=== PATIENT | female | born 2000 | race Caucasian/White ===

== ENCOUNTER 2023-10-10 01:14 | Emergency (ER) | payer BC, SELFPAY ==
--- NOTE | ~2023-10-10 | CT_ITS ---
EXAMINATION: CT HEAD WITHOUT CONTRAST CT CERVICAL SPINE WITHOUT CONTRAST CT FACIAL BONES WITHOUT CONTRAST CLINICAL INFORMATION: Fall. Pain. COMPARISON: None available. TECHNIQUE: Contiguous axial imaging was performed through the head, cervical spine and facial bones without intravenous administration of contrast. Sagittal and coronal reformatted images also obtained. This CT examination was performed using dose optimization techniques as appropriate, variously including the following: *Automated exposure control *Adjustment of mA and/or kV according to patient size (this includes techniques or standardized protocols for targeted exams where dose is matched to indication/reason for exam; i.e. extremities or head) *Use of iterative reconstruction technique DLP: 1207 mGy-cm FINDINGS: Head: Motion slightly limits evaluation. The lateral, third and fourth ventricles are normally outlined. The cortical sulci and basal cisterns are normally outlined as well. There is no acute territorial defect, hemorrhage or midline shift. The extra-axial spaces are unremarkable. Calvarium/scalp: There is right frontotemporal/supraorbital soft tissue swelling. Calvarium is intact. Facial bones: No fracture is seen. There is right periorbital/supraorbital soft tissue swelling. The maxillofacial sinuses and mastoids are clear. Cervical spine: There is straightening of the expected cervical spine curvature. The alignment is otherwise normal. The disc spaces are maintained. The spinal canal and neuroforamen are patent. The soft tissues are unremarkable. The visualized upper lung wei are clear. CT/CT cervical spine wo IV con IMPRESSION: 1. No acute intracranial abnormality. 2. Right periorbital/supraorbital soft tissue swelling. No acute facial fracture. 3. No acute cervical spine abnormality.
--- NOTE | ~2023-10-10 | CT_ITS ---
EXAMINATION: CT HEAD WITHOUT CONTRAST CT CERVICAL SPINE WITHOUT CONTRAST CT FACIAL BONES WITHOUT CONTRAST CLINICAL INFORMATION: Fall. Pain. COMPARISON: None available. TECHNIQUE: Contiguous axial imaging was performed through the head, cervical spine and facial bones without intravenous administration of contrast. Sagittal and coronal reformatted images also obtained. This CT examination was performed using dose optimization techniques as appropriate, variously including the following: *Automated exposure control *Adjustment of mA and/or kV according to patient size (this includes techniques or standardized protocols for targeted exams where dose is matched to indication/reason for exam; i.e. extremities or head) *Use of iterative reconstruction technique DLP: 1207 mGy-cm FINDINGS: Head: Motion slightly limits evaluation. The lateral, third and fourth ventricles are normally outlined. The cortical sulci and basal cisterns are normally outlined as well. There is no acute territorial defect, hemorrhage or midline shift. The extra-axial spaces are unremarkable. Calvarium/scalp: There is right frontotemporal/supraorbital soft tissue swelling. Calvarium is intact. Facial bones: No fracture is seen. There is right periorbital/supraorbital soft tissue swelling. The maxillofacial sinuses and mastoids are clear. Cervical spine: There is straightening of the expected cervical spine curvature. The alignment is otherwise normal. The disc spaces are maintained. The spinal canal and neuroforamen are patent. The soft tissues are unremarkable. The visualized upper lung wei are clear. CT/CT head/brain wo IV con IMPRESSION: 1. No acute intracranial abnormality. 2. Right periorbital/supraorbital soft tissue swelling. No acute facial fracture. 3. No acute cervical spine abnormality.
--- NOTE | ~2023-10-10 | CT_ITS ---
EXAMINATION: CT HEAD WITHOUT CONTRAST CT CERVICAL SPINE WITHOUT CONTRAST CT FACIAL BONES WITHOUT CONTRAST CLINICAL INFORMATION: Fall. Pain. COMPARISON: None available. TECHNIQUE: Contiguous axial imaging was performed through the head, cervical spine and facial bones without intravenous administration of contrast. Sagittal and coronal reformatted images also obtained. This CT examination was performed using dose optimization techniques as appropriate, variously including the following: *Automated exposure control *Adjustment of mA and/or kV according to patient size (this includes techniques or standardized protocols for targeted exams where dose is matched to indication/reason for exam; i.e. extremities or head) *Use of iterative reconstruction technique DLP: 1207 mGy-cm FINDINGS: Head: Motion slightly limits evaluation. The lateral, third and fourth ventricles are normally outlined. The cortical sulci and basal cisterns are normally outlined as well. There is no acute territorial defect, hemorrhage or midline shift. The extra-axial spaces are unremarkable. Calvarium/scalp: There is right frontotemporal/supraorbital soft tissue swelling. Calvarium is intact. Facial bones: No fracture is seen. There is right periorbital/supraorbital soft tissue swelling. The maxillofacial sinuses and mastoids are clear. Cervical spine: There is straightening of the expected cervical spine curvature. The alignment is otherwise normal. The disc spaces are maintained. The spinal canal and neuroforamen are patent. The soft tissues are unremarkable. The visualized upper lung wei are clear. CT/CT facial bones wo IV con IMPRESSION: 1. No acute intracranial abnormality. 2. Right periorbital/supraorbital soft tissue swelling. No acute facial fracture. 3. No acute cervical spine abnormality.
[2023-10-10 01:23] VITALS: BP 143/67; PULSE 105; O2SAT 95
[2023-10-10 01:35] VITALS: BP 136/85; PULSE 76; RESP 20; TEMP 36.6; O2SAT 100
[2023-10-10 01:51] VITALS: BMI 25.6
--- NOTE | 2023-10-10 01:55 | PC.NURSE ---
pt to ct scan now.
--- NOTE | 2023-10-10 02:29 | PC.NURSE ---
pt return from ct scan. abrasion/hematoma of forehead cleaned with sterile water/iodine pt tolerated well. bleeding controlled. bacitracin applied topical. dad at bedside. pt calm/cooperative speaking full clear sentences. [id number]. awaiting ct scan results. call [facility] within reach.
--- NOTE | 2023-10-10 03:22 | ED.FALL ---
HPI - Fall General Chief Complaint: Fall Stated Complaint: FALL, ETOH Time Seen by Provider: 10/10/23 03:18 Source: patient Mode of arrival: EMS Limitations: no limitations History of Present Illness HPI Narrative: Patient comes to the emergency room after sustaining a mechanical fall. Patient states that she was drinking alcohol and tripped and fell. Patient hit her head, did not lose consciousness. Patient is not on blood thinners. Patient complaining of an abrasion and a bump to the forehead on the right side. Denies neck pain, Related Data Allergies Allergy/AdvReac Type Severity Reaction Status Date / Time No Known Allergies Allergy Verified 10/10/23 01:50 Review of Systems Review of Systems: Constitutional : No Weight loss, No Fever, No Chills, No Night Sweats, No Fatigue, No Malaise ENT/Mouth : No Hearing loss, No Ear Pain, No Nasal Congestion, No Sinus Pain, No Hoarseness, No sore throat, No Rhinorrhea, No Swallowing Difficulty Eyes: No Eye Pain, No Swelling, No Redness, No Foreign Body, No Discharge, No Vision Changes Cardiovascular : No Chest Pain, No SOB, No Dyspnea on Exertion, No Orthopnea, No Edema, No Palpitations Respiratory : No Cough, No Sputum, No Wheezing, No Smoke Exposure, No Dyspnea Gastrointestinal : No Nausea, No Vomiting, No Diarrhea, No Constipation, No abdominal Pain, No Hematochezia, No Melena Genitourinary : no irregular bleeding, No Dysuria, No Urinary Frequency, No Hematuria, No Urinary Incontinence, No Urgency, No Flank Pain, No Urinary Flow Changes, No Hesitancy Musculoskeletal : No joint pain, No Myalgias, No Joint Swelling Skin : Ecchymosis and abrasion to the right forehead Neuro : No Weakness, No Numbness, No Paresthesias, No Loss of Consciousness, No Dizziness, No Headache Psych : No Anxiety/Panic, No Depression, No SI/HI/AH/VH, No Social Issues, Heme/Lymph: No Bruising, No Bleeding,No Lymphadenopathy Endocrine : No Polyuria, No Polydipsia, No Temperature Intolerance [facility] Social History Social History Advance Directives: No Advance Directives Information Provided: Yes Physical Exam Vital Signs: Vital Signs: Last Vital Signs Temp 97.8 F 10/10/23 01:35 Pulse 76 10/10/23 01:35 Resp 20 10/10/23 01:35 BP 136/85 10/10/23 01:35 Pulse Ox 100 10/10/23 01:35 O2 Del Method Room Air 10/10/23 01:35 BMI result Body Mass Index 25.6 Const: Other: Appearance: Alert. Oriented X3. No acute distress. Eyes: Pupils equal, round and reactive to light. ENT: Pharynx normal. Neck: Normal inspection. Neck supple. No lymph nodes noted. No crepitus CVS: Normal heart rate and rhythm. Pulses normal. Normal S1 and S2 Respiratory: No respiratory distress. Breath sounds normal. No Wheezing. No rales Abdomen: Soft and nontender. No rigidity. No distention. Skin: Patient has ecchymosis and superficial abrasion to the right side of the forehead. Extremities: No lower extremity edema. No Lacerations. No Rash Neuro: Oriented X 3. No motor deficit. No sensory deficit. Moving all extremities. No slurred speech. CN 2 through 12 grossly intact Psych: calm, cooperative, normal affect Medical Decision Making Medical Decision Making MDM Narrative: My interpretation of head CT and cervical spine CT, no intracranial bleed, normal C-spine alignment. -patient has abrasions and a very small laceration to the forehead which does not require sutures. Differential Diagnosis Differential Diagnoses: The differential diagnosis associated with the presentation includes (Alcohol intoxication polysubstance abuse, mechanical fall) Independent Interpretation I performed an independent interpretation of an: CT Scan Interpretation: FINDINGS: Head: Motion slightly limits evaluation. The lateral, third and fourth ventricles are normally outlined. The cortical sulci and basal cisterns are normally outlined as well. There is no acute territorial defect, hemorrhage or midline shift. The extra-axial spaces are unremarkable. Calvarium/scalp: There is right frontotemporal/supraorbital soft tissue swelling. Calvarium is intact. Facial bones: No fracture is seen. There is right periorbital/supraorbital soft tissue swelling. The maxillofacial sinuses and mastoids are clear. Cervical spine: There is straightening of the expected cervical spine curvature. The alignment is otherwise normal. The disc spaces are maintained. The spinal canal and neuroforamen are patent. The soft tissues are unremarkable. The visualized upper lung wei are clear. CT/CT head/brain wo IV con IMPRESSION: 1. No acute intracranial abnormality. 2. Right periorbital/supraorbital soft tissue swelling. No acute facial fracture. 3. No acute cervical spine abnormality. Discharge Plan Discharge Clinical Impression: Alcohol intoxication, Fall, Abrasion of skin Patient Disposition: Home, Self-Care Instructions: Alcohol Intoxication (ED), Abrasion (ED) Additional Instructions: Please follow-up with your primary care physician tomorrow. If you have any worsening or new symptoms, please return to the emergency room or call [phone]
== END 2023-10-10 03:43 | disposition home or self-care (01) ==
PROVIDERS: Emergency Provider Emergency Medicine
DX: F10.920 Alcohol use, unspecified with intoxication, uncomplicated (principal); Y90.9 Presence of alcohol in blood, level not specified; S00.81XA Abrasion of other part of head, initial encounter; W01.0XXA Fall on same level from slipping, tripping and stumbling without subsequent striking against object, initial encounter; Y93.9 Activity, unspecified; Y92.9 Unspecified place or not applicable; Y99.9 Unspecified external cause status
CPT/HCPCS: 70450; 70486; 72125; 99283; 99284